=== PATIENT | female | born 1970 | race Caucasian/White ===

== ENCOUNTER 2019-10-02 10:02 | Emergency (ER) | payer OTHER ==
[~2019-10-02] VITALS: Ht 170.2 cm; Wt 79.4 kg
[2019-10-02] MEDS ORDERED: SYNTHROID50 MCG PO (10:17)
[2019-10-02 10:20] LABS: URINE BILIRUBIN NEGATIVE (Negative); URINE BLOOD TRACE (Negative); URINE CLARITY CLEAR; URINE COLOR YELLOW; URINE GLUCOSE-RANDOM NEGATIVE (Negative); URINE KETONES NEGATIVE (Negative); URINE LEUKOCYTES-REFLEX NEGATIVE (Negative); URINE NITRITE-REFLEX NEGATIVE (Negative); URINE PROTEIN NEGATIVE (Negative); URINE UROBILINOGEN 0.2 E.U./dl (0.2-1.0)
[2019-10-02 10:42] LABS: ABSOLUTE EOSINOPHILS 0.3 thou/uL (0.0-0.7); ABSOLUTE LYMPHOCYTES 1.4 thou/uL (0.8-5.3); ABSOLUTE MONOCYTES 0.4 thou/uL (0.0-1.2); ABSOLUTE NEUTROPHILS 3.5 thou/uL (1.6-8.1); BASOPHILS 0.8 %; EOSINOPHILS 4.5 %; HEMATOCRIT 38.4 % (37.0-47.0); HEMOGLOBIN 12.8 gm/dL (12.0-15.0); LYMPHOCYTES 25.5 %; MCH 28.7 pg (26.0-34.0); MCHC 33.4 g/dL (28.0-37.0); MCV 86.1 fL (80.0-100.0); MONOCYTES 7.3 %; MPV 7.9 fl. (7.2-11.1); NUCLEATED RBCS 0 /100WBC; PLATELET COUNT* 199 thou/uL (150-400); POLYS 61.9 %; RBC 4.46 mil/uL (4.20-5.00); RDW-CV 12.4 % (10.5-14.5); WBC 5.6 thou/uL (4.0-11.0)
[2019-10-02 10:51] LABS: CALCIUM 8.1 mg/dL (8.5-10.1); CREATININE 0.9 mg/dL (0.6-1.3); POTASSIUM 3.7 mmol/L (3.5-5.1)
[2019-10-02 10:55] LABS: ALBUMIN 3.9 g/dL (3.4-5.0); TOTAL BILIRUBIN 0.3 mg/dL (<0.1-1.0); TOTAL PROTEIN 7.3 g/dL (6.4-8.2)
[2019-10-02] MEDS ORDERED: NORCO 5-325 TA1 EAC1 PO (12:20)
[2019-10-02] MEDS ORDERED: BENTYL 10 MG CA10 M1 PO (12:20)
[2019-10-02 12:26] VITALS: BP 131/73
--- NOTE | 2019-10-04 08:32 | EKG ---
[place] [address] ELECTROCARDIOGRAM REPORT Name: HUSEYIN LANDAVERDE Room: [facility]#: [id number] Admission: 10/02/19 Attend Phys: Discharge: 10/02/19 Date of : 66 Date of Service: 10/02/19 1048 Report #: [id number] THIS REPORT FOR: //name// [facility] ED Test Date: 2019-10-02 Test Time: 10:48:46 Pat Name: HUSEYIN LANDAVERDE Department: Room: Gender: Core Sticker: [facility] : 1970 Requested By: Ramesh Otero Order Number: [id number] MD: Felix Harper Measurements Intervals Sharon Rate: 52 P: 73 PA: 162 QRS: 69 QRSD: 80 T: 48 QT: 455 QTc: 424 Interpretive Statements Sinus rhythm No previous ECG available for comparison Electronically Signed On 10-04-2019 8:32:13 CDT by Felix Harper [email or web address] <ELECTRONICALLY SIGNED> By: Felix Harper MD, [facility] 10/04/19 0832 1048 1048 Felix Harper MD, FACC /EPI
== END 2019-10-02 12:27 | disposition home or self-care (01) ==
LOC: M.ERS 10:02
PROVIDERS: Family Medicine
DX: R10.10 Upper abdominal pain, unspecified (principal); E03.9 Hypothyroidism, unspecified